=== PATIENT | female | born 1945 | race Caucasian/White ===

== ENCOUNTER → 2017-02-21 | Outpatient (CLI) | payer OTHER, BC | LOC: BHFA 11:00 | PROVIDERS: ATTEND Internal Medicine Cardiovascular Disease | DX: I50.33 Acute on chronic diastolic (congestive) heart failure (principal); R06.02 Shortness of breath; R60.9 Edema, unspecified ==

== ENCOUNTER → 2017-03-05 | Outpatient (CLI) | payer OTHER, BC | LOC: BHFA 10:45 | PROVIDERS: ATTEND Internal Medicine Cardiovascular Disease | DX: I50.9 Heart failure, unspecified (principal) ==

== ENCOUNTER → 2017-03-18 | Outpatient (CLI) | payer OTHER, BC | LOC: BRMIMAGING 14:01 | PROVIDERS: ATTEND Family Medicine | DX: Z13.820 Encounter for screening for osteoporosis (principal); M85.89 Other specified disorders of bone density and structure, multiple sites ==

== ENCOUNTER 2017-11-08 15:50 | Emergency (ER) | payer OTHER, BC ==
--- NOTE | 2017-11-08 16:12 | EDPHY ---
H & P Stated Complaint: R hip and R knee pain after mechanical fall today. Time Seen by Provider: 11/08/17 16:11 HPI/ROS: CC: Right hip, right knee and right chest wall injuries HPI: This is a 72-year-old female who took a tumble at home when she tripped and slipped on Aleve. She did not have her feet came out from underneath her but she fell instead to the side. In so doing she landed on her right pelvis area as well as the right thoracoabdominal region. Fortunately, she did not land on the abdomen proper. She does have some bruising on the abdomen she attributes to her prior insulin injections. However, she was not able to pull herself up right away and get on to the leg as she was unable to weightbear. She pulled herself over to the sink and then was able to get herself up a little bit and put her weight on her left leg. In fact she summoned helped by using her Arin machine and getting her daughter to come over. She notes that she had a so had a direct blow to the right knee and has lot of bruising there. Further she really was not aware of anything in the chest wall however until my exam elicited some tenderness in the posterior axial line on the lower right chest. She denies getting the wind knocked out of her. She denies any pleuritic pain with taking deep breath at this time. She has no nausea vomiting. Finally, she also struck her head. She did not lose consciousness. She has full recall for them. There has been no blood from the ear or nose. She has not any blood thinners or anti-platelet agents. 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 However, her most recent CAT scans in the last 6 months have not shown any bony metastasis. Pt queried and denies: no prior hx of substance abuse, no family history of substance abuse, or no current or prior psychiatric history. ROS: Constitutional - feeling well before the fall, no prodrome, simple mechanical fall Head no injury or hematoma. Eyes - no diplopia, blurred vision. ENT - no earache, no fluid from ear. No fluid from nose. No facial injury Neck: no pain or decreased ROM Thorax see above Abdominal - denies any abdomen, or back injury. No nausea. See above Musculoskeletal - see above Integument - no lacerations Neurological - no headache, numbness, tingling, or paresthesias. No focal motor weakness. No amnesia or LOC. No fluid from ear or nose 10 point ROS otherwise negative Source: Patient - Personal History Current Tetanus Diphtheria and Acellular Pertussis (TDAP): Yes Tetanus Vaccine Date: within 10 years - Medical/Surgical History Hx Asthma: No Hx Chronic Respiratory Disease: No Hx Diabetes: Yes Hx Cardiac Disease: Yes Hx Renal Disease: No Hx Cirrhosis: No Hx Alcoholism: No Hx HIV/AIDS: No Hx Splenectomy or Spleen Trauma: No Other PMH: Bile duct tumors, tubal ligation, c-4,5 fusion, bilat knee replacement, HTN, hypothyroidism, DM type II, osteoarthritis, "marginal issues with kidneys", R CHF, heart murmur, L BBB - Social History Smoking Status: Former smoker Alcohol Use: None Drug Use: None - Physical Exam Exam: Constitutional: Well-nourished, well-developed, no acute distress. [No odor of alcohol] Head: No cephalohematoma. No battles sign or racoon eyes. Neck: Nontender without step off, with full active range of motion without pain Eyes: Pupils equal and reactive. ENT: Ears are without hemotympanum. Mouth exam, atraumatic. Chest: Mild tenderness to the right posterior ribs in the posterior axillary line however, no crepitus or subcutaneous emphysema.. No signs of splinting respirations. Back: Nontender thoracic and lumbar sacral spine Abdomen: Nontender. No organomegaly. No abrasions. Scattered ecchymotic areas from her insulin injections Musculoskeletal: Moves all extremities without difficulty. No joint swelling. No ecchymosis. No deformities. Skin: No observed abrasions or lacerations. Skin is warm and dry. Normal motor and sensation. Large ecchymotic areas over the front of the right knee. See below Extremities: Neurovascular status intact to all 4 extremities With respect to the right knee: He is able to bend the knee. However there is tenderness over the site of the knee which is perhaps due to the ecchymotic regions at icy, unclear. No crepitus is felt. There is no deformity. There are several 2 cm elliptical ecchymotic regions, particularly over the medial area Was respect to the right hip: There is no shortening. No external rotation. When I move her hip to the inner aspect with internal rotation she has quite a bit of discomfort. Of note her body habitus precludes a good exam of the pelvis however there is no tenderness at that I am able to elicit over the anterior superior like signs or with the symphysis pubis. LS spine is nontender Neuro: Alert and oriented with a GCS of 15. No acute distress. No headache. Psych: Normal mood and affect. Constitutional: Initial Vital Signs Temperature (C) 37.2 C 11/08/17 15:59 Heart Rate 59 L 11/08/17 15:59 Respiratory Rate 16 11/08/17 15:59 Blood Pressure 127/60 H 11/08/17 15:59 O2 Sat (%) 90 L 11/08/17 15:59 O2 Delivery Mode Room Air Allergies/Adverse Reactions: povidone-iodine [From Betadine] Allergy (Verified 11/08/17 15:59) Pt reports rash soap [From Betadine] Allergy (Verified 11/08/17 15:59) Pt reports rash Home Medications: Medication Instructions Recorded Acetaminophen [Tylenol ES 500 mg 1,000 mg PO Q6 PRN 07/10/14 (*)] Carvedilol [Coreg (*)] 12.5 mg PO BIDMEAL 07/10/14 Cholecalciferol Vit D3 [Vitamin D3 5,000 units PO DAILY 07/10/14 (*)] Levothyroxine [Synthroid 75 mcg 75 mcg PO DAILY06 07/10/14 (*)] Melatonin [Melatonin 3 MG (*)] 3 mg PO HS 07/10/14 Docusate Sodium [Colace 100 MG (*)] 100 mg PO BID #20 cap 11/08/17 Oxycodone HCl 1 tab PO Q6H PRN #12 capsule 11/08/17 Pristiq 11/08/17 Proair Hfa 11/08/17 Torsemide 11/08/17 Toujeo Solostar 11/08/17 Medical Decision Making - Diagnostics Imaging Results: Imaging Impressions Hip X-Ray 11/08/17 16:27 Impression: No acute abnormality seen about the pelvis with attention right hip. Knee X-Ray 11/08/17 16:27 Impression: 1. No acute abnormality seen about the right knee with right total knee replacement in good position. Ribs w/Chest X-Ray 11/08/17 16:28 Impression: 1. Negative Right rib series. 2. Mild dependent edema suspected at the lung bases. 3. Mild cardiomegaly stable in appearance. Pelvis CT 11/08/17 17:08 Impression: Negative. No acute fracture or dislocation. Findings discussed with Emergency Department physician, Merrill Bowens M.D., on November 08, 2017 at 1845. ED Course/Re-evaluation: After initial meeting we talked about pain relief. If her x-rays are negative I want to have best option being be able to get around on her walker that she be assigned. She concurred that she will be able to handle morphine thus he went fairly low dose given her BMI at 4 mg subcu. The initial x-rays upon my interpretation were negative which included chest, ribs, right hip, and right knee. Thus, as she was unable to weight bear wihtout piain, I recommended a CT of Pelvis. Re-examination after the x-rays and CT patient was much improved with the subcu morphine. We had a chance to go over the diagnostic results and she was reassured. Nonetheless she should have re-examination with her family doctor within the week. I totally expected feel more comfortable as of 2 days. Given her history of bile tumors I would prefer to stay away from Tylenol. As well as her underlying diabetes and age, ibuprofen would be a poor choice. Therefore, she will of low-dose oxycodone. I have explained to her the risks and benefits narcotic management. Differential Diagnosis: Differential diagnosis includes but is not limited to Intracranial: subdural hematoma, epidural hematoma, peripheral contusion, concussion. Cervical spine: Fracture spine, dislocation spine, muscle strain Thorax: Rib fracture, hemothorax, pneumothorax, tension pneumothorax, aortic dissection, spine fracture. Spine: Thoracic and lumbar sacral spine fracture or dislocation Abdominal/pelvis: Splenic injury or hematoma or laceration, liver laceration or hematoma. Contusion of duodenum, renal contusion, hollow viscus injury, pelvic fracture, intra-abdominal bleeding. Extremity: Fracture, Sprain, Strain, Dislocation, Nerve injury, Contusion - Data Points Medications Given: Discontinued Medications Morphine Sulfate (Morphine) 4 mg SC EDNOW ONE Stop: 11/08/17 16:28 Last Admin: 11/08/17 17:01 Dose: 4 mg Departure - Departure Disposition: Home, Routine, Self-Care Clinical Impression: Chest wall contusion Qualifiers: Encounter type: initial encounter Laterality: right Qualified Code(s): S20.211A - Contusion of right front wall of thorax, initial encounter Contusion of knee Qualifiers: Encounter type: initial encounter Laterality: right Qualified Code(s): S80.01XA - Contusion of right knee, initial encounter Strain of hip Qualifiers: Encounter type: initial encounter Laterality: right Qualified Code(s): S76.011A - Strain of muscle, fascia and tendon of right hip, initial encounter Condition: Good Instructions: Contusion in Adults (ED) Additional Instructions: Apply ice to the areas. Oxycodone for the pain. Crutches as needed. Referrals: Yun Mays MD [Primary Care Provider] - As per Instructions Prescriptions: Docusate Sodium [Colace 100 MG (*)] 100 mg PO BID #20 cap Oxycodone HCl 1 tab PO Q6H PRN #12 capsule PRN Reason: pain
[2017-11-08 21:43] VITALS: BP 132/70
== END 2017-11-08 19:53 | disposition home or self-care (01) ==
LOC: CED 15:50
DX: S20.211A Contusion of right front wall of thorax, initial encounter (principal); S80.01XA Contusion of right knee, initial encounter; S76.011A Strain of muscle, fascia and tendon of right hip, initial encounter; Z87.891 Personal history of nicotine dependence; W01.0XXA Fall on same level from slipping, tripping and stumbling without subsequent striking against object, initial encounter; Y92.9 Unspecified place or not applicable; Y93.9 Activity, unspecified; Y99.9 Unspecified external cause status
CPT/HCPCS: 71111; 72192; 73502; 73562; 96372; 99285; J2270

== ENCOUNTER → 2018-03-03 | Outpatient (CLI) | payer OTHER, BC | LOC: BHFA 09:15 | PROVIDERS: ATTEND Internal Medicine Cardiovascular Disease | DX: I50.9 Heart failure, unspecified (principal) ==

== ENCOUNTER 2018-03-19 18:48 | Inpatient (IN) | payer OTHER, BC ==
[2018-03-19] MEDS ORDERED: IOHEXOL 350mgI/ML (OMNIPAQUE) 150 ML BTL IV ONE (19:11)
--- NOTE | 2018-03-19 19:20 | EDPHY ---
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 1 month ago, she developed a fever and was admitted to [facility]. She was placed on IV Zosyn for 7 days. All cultures and CT scan of the abdomen pelvis were unremarkable and she was ultimately discharged with fever of unknown origin. She has been feeling well until this morning, when she developed a fever, associated with nausea and vomiting. She saw her primary care physician, Dr. Mays this morning and labs were drawn. She was also given a prescription for Zofran and has not vomited since taking Zofran. Tolerating oral fluids well. Took Tylenol at 3:00 p.m.. Laboratory tests returned this evening and LFTs elevated and leukocytosis noted. Dr. Eladio Kumar was consulted, who recommended a CT scan of the abdomen and pelvis, ID consult and admission. REVIEW OF SYSTEMS: complete 10 point ROS reviewed and is negative except for the noted elements in the HPI - Personal History Current Tetanus/Diphtheria Vaccine: Yes Tetanus Vaccine Date: within 10 years - Medical/Surgical History Hx Asthma: No Hx Chronic Respiratory Disease: No Hx Diabetes: Yes Hx Cardiac Disease: Yes Hx Renal Disease: No Hx Cirrhosis: No Hx Alcoholism: No Hx HIV/AIDS: No Hx Splenectomy or Spleen Trauma: No Other PMH: Bile duct tumors/CA, tubal ligation, c-4,5 fusion, bilat knee replacement, HTN, hypothyroidism, DM type II, osteoarthritis, "marginal issues with kidneys", R CHF, heart murmur, L BBB, HERNIA/ABCESSES, LEFT LIVER LOBE REMOVAL - Social History Smoking Status: Former smoker - Physical Exam Exam: General Appearance: Alert, pleasant, nontoxic-appearing Eyes: Pupils equal and round, no conjunctival pallor or injection ENT, Mouth: Mucous membranes moist, no oral lesions Neck: Normal inspection Respiratory: Lungs are clear to auscultation Cardiovascular: Regular rate and rhythm Gastrointestinal: Abdomen is soft and nontender, hepatomegaly present Neurological: A&O, nonfocal exam Skin: Warm and dry, abrasion right forearm with erythema surrounding the abrasion, no tenderness Extremities: Nontender, no pedal edema Psychiatric: Mood and affect normal Constitutional: Initial Vital Signs Temperature (C) 38.2 C 01/30/19 18:45 Heart Rate 89 03/19/18 18:45 Respiratory Rate 20 03/19/18 18:45 Blood Pressure 150/52 H 03/19/18 18:45 O2 Sat (%) 85 L 03/19/18 18:45 O2 Delivery Mode Nasal Cannula O2 (L/minute) 2 Allergies/Adverse Reactions: povidone-iodine [From Betadine] Allergy (Verified 03/19/18 19:10) Pt reports rash soap [From Betadine] Allergy (Verified 03/19/18 19:10) Pt reports rash Home Medications: Medication Instructions Recorded Acetaminophen [Tylenol ES 500 mg 1,000 mg PO Q8 PRN 07/10/14 (*)] Carvedilol [Coreg (*)] 6.25 mg PO BIDMEAL 07/10/14 Cholecalciferol Vit D3 [Vitamin D3 5,000 units PO DAILY 07/10/14 (*)] Levothyroxine [Synthroid 75 mcg 75 mcg PO DAILY06 07/10/14 (*)] Melatonin [Melatonin 3 MG (*)] 3 mg PO HS 07/10/14 Albuterol [Proventil Inhaler HFA 1 - 2 puffs IH Q4H 11/08/17 (*)] Insulin Glargine,Hum.rec.anlog 80 unit SQ HS 11/08/17 [Toujeo Solostar] Torsemide 30 mg PO DAILY 11/08/17 Ascorbic Acid [Vitamin C 500 mg 1,000 mg PO DAILY 03/19/18 (*)] C/E/Zn/Cu/OM3/DHA/EPA/LUT/ZEAX 1 each PO HS 03/19/18 [Preservision Areds 2 Softgel] Cyanocobalamin [Vitamin B12 (*)] 1,000 mcg PO DAILY 03/19/18 Desvenlafaxine Fumarate 100 mg PO HS 03/19/18 [Desvenlafaxine Fumarate ER] Docusate Sodium [Colace 100 MG (*)] 100 mg PO HS 03/19/18 Eszopiclone 2 mg PO HS PRN 03/19/18 Ferrous Sulfate 324 mg PO Q2D 03/19/18 Herbals/Supplements -Info Only 1 ea PO DAILY 03/19/18 Losartan Potassium 100 mg PO DAILY 03/19/18 Pantoprazole Sodium [Protonix 40mg 40 mg PO HS 03/19/18 (*)] Sennosides/Docusate Sodium 1 each PO DAILY 03/19/18 [Senna-Docusate Sodium Tablet] amLODIPine BESYLATE [Norvasc 5 mg 5 mg PO DAILY 03/19/18 (*)] Medical Decision Making - Diagnostics Imaging Results: Abdomen CT 03/19/18 19:07 Impression: Postsurgical changes of resection of the right lobe of the liver and decreased attenuation of the dome of the liver, with calcification and lateral artifact from site of prior ablation. The hypodensity is similar in size and is more likely related to the ablation than recurrent or residual tumor. There is a fluid collection, with a simple appearance, posterior to the liver, which is nonspecific. With the simple appearance and unlike inflammatory change, an acute abscess is less likely. With the history of recent fever and cholangitis, a sterile abscess could be considered. Less likely consideration could be biloma or old hematoma. Similar differential with a small fluid collection in the inferior tip of the liver. Results called and discussed with Jesica Roman M.D., on March 19, 2018 at 1958. E:CN/rocio Imaging: Discussed imaging studies w/ call or contact centre manager Radiologist ED Course/Re-evaluation: This pt presents with fever and elevated LFT's. Abd soft and NT, though clinical presentation concerning for acute abd process. Fortunately, pt is well appearing. Meets SIRS criteria, initial lactate normal. Will obtain labs/ flu swab and CT abd/pelvis. CT results d/w pt, ?etiology of fluid collection, ?etiology of fever. Consulted Dr. Quigley for consideration of perihepatic fluid collection drainage and he saw pt in ED. UA pending, pt unable to urinate, 2nd liter IVF given. Could be source of infection, paresh with DM, though pt denies urinary sx. Consulted Dr. Galan, will see pt in am. Suggests considering holding abx for now, plan for Rocephin/Flagyl IV if pt becomes ill-appearing. Dr. Chacon was consulted for admission. Differential Diagnosis: Differential diagnosis includes pyelonephritis, cholecystitis, influenza, cellulitis, pneumonia, abscess, meningitis. - Data Points Medications Given: Acetaminophen (Tylenol) 650 mg PO Q4HRS PRN PRN Reason: Pain, Mild/Fever, Can Take PO Stop: 09/15/18 20:54 Last Admin: 03/20/18 10:27 Dose: 650 mg Hydrocodone Bitart/Acetaminophen ([place] 5/325) 1 - 2 tab PO Q4HRS PRN PRN Reason: Pain, Moderate Able to Take PO Stop: 03/29/18 20:54 Last Admin: 03/21/18 15:39 Dose: 2 tab Amlodipine Besylate (Norvasc) 5 mg PO DAILY MARÍA Stop: 09/16/18 08:59 Last Admin: 03/21/18 10:17 Dose: 5 mg Ascorbic Acid (Vitamin C) 1,000 mg PO DAILY MARÍA Stop: 09/16/18 08:59 Last Admin: 03/21/18 10:39 Dose: 1,000 mg Carvedilol (Coreg) 6.25 mg PO BIDMEAL [facility] Stop: 09/16/18 07:59 Last Admin: 03/21/18 11:25 Dose: 6.25 mg Cholecalciferol (Vitamin D) 5,000 units PO DAILY MARÍA Stop: 09/16/18 08:59 Last Admin: 03/21/18 10:39 Dose: 5,000 units Docusate Sodium (Colace) 100 mg PO HS [facility] Stop: 09/15/18 21:59 Last Admin: 03/20/18 20:36 Dose: 100 mg Enoxaparin Sodium (Lovenox) 40 mg SC BID [facility]A Stop: 09/16/18 08:59 Last Admin: 03/21/18 11:03 Dose: Not Given Ferrous Sulfate (Ferrous Sulfate) 325 mg PO Q2D [facility] Stop: 09/16/18 08:59 Last Admin: 03/20/18 10:05 Dose: 325 mg Ertapenem 1 gm/ Sodium (Chloride) 100 mls @ 200 mls/hr IV DAILY [facility]ÍA PRN Reason: Protocol Stop: 04/20/18 10:19 Last Admin: 03/21/18 11:10 Dose: 100 mls Insulin Human Lispro (Humalog Lispro) 0 unit SC TIDMEAL [facility]A PRN Reason: Protocol Stop: 09/16/18 07:59 Last Admin: 03/21/18 12:46 Dose: Not Given Levothyroxine Sodium (Synthroid) 75 mcg PO DAILY06 [facility] Stop: 09/16/18 05:59 Last Admin: 03/21/18 06:06 Dose: 75 mcg Losartan Potassium (Cozaar) 100 mg PO DAILY [facility] Stop: 09/16/18 08:59 Last Admin: 03/21/18 10:48 Dose: 100 mg Melatonin (Melatonin) 3 mg PO HS [facility] Stop: 09/15/18 21:59 Last Admin: 03/20/18 20:36 Dose: 3 mg Miscellaneous Medication (Insulin Glargine,Hum.Rec.Anlog [Darrellanalia Ursulaarabella]) 80 unit SQ HS [facility] Stop: 09/15/18 21:59 Last Admin: 03/20/18 20:46 Dose: 80 units Miscellaneous Medication (Desvenlafaxine Fumarate [Desvenlafaxine Fumarate Er]) 100 mg PO HS [facility] Stop: 09/15/18 22:14 Last Admin: 03/20/18 20:49 Dose: 100 mg Multivitamins/Minerals (Preservision Areds2 Formula) 1 each PO HS [facility] Stop: 09/16/18 20:59 Last Admin: 03/20/18 20:36 Dose: 1 each Ondansetron HCl (Zofran Odt) 4 mg PO Q4HRS PRN PRN Reason: Nausea/Vomiting, Use 1st Stop: 09/15/18 20:54 Last Admin: 03/20/18 20:42 Dose: 4 mg Pantoprazole Sodium (Protonix) 40 mg PO HS [facility] Stop: 09/15/18 21:59 Last Admin: 03/20/18 21:32 Dose: 40 mg Senna/Docusate Sodium (Senokot-S) 1 tab PO DAILY [facility] Stop: 09/16/18 08:59 Last Admin: 03/21/18 10:43 Dose: 1 tab Torsemide (Demadex) 30 mg PO DAILY [facility] Stop: 09/16/18 08:59 Last Admin: 03/21/18 10:43 Dose: Not Given Vitamin B Complex (Vitamin B12) 1,000 mcg PO DAILY [facility] Stop: 09/16/18 08:59 Last Admin: 03/21/18 10:40 Dose: 1,000 mcg Discontinued Medications Acetaminophen (Tylenol) 1,000 mg PO EDNOW ONE Stop: 03/19/18 19:22 Last Admin: 03/19/18 19:38 Dose: 1,000 mg Albuterol (Proventil Inhaler) 1 - 2 puffs IH Q4H [facility] Stop: 09/15/18 21:44 Last Admin: 03/19/18 23:33 Dose: Not Given Albuterol (Proventil Inhaler) 1 - 2 puffs IH Q4H [facility] Stop: 09/16/18 00:00 Last Admin: 03/21/18 11:20 Dose: Not Given Carvedilol (Coreg) 6.25 mg PO ONCE ONE Stop: 03/20/18 00:42 Last Admin: 03/20/18 01:20 Dose: 6.25 mg Sodium Chloride (Ns) 1,000 mls @ 0 mls/hr IV ONCE ONE; Wide Open PRN Reason: Protocol Stop: 03/19/18 20:15 Last Admin: 03/19/18 21:08 Dose: 1,000 mls Ceftriaxone Sodium/Dextrose (Rocephin 1 Gm (Premix)) 50 mls @ 100 mls/hr IV DAILY [facility]A PRN Reason: Protocol Stop: 04/18/18 21:29 Last Admin: 03/21/18 10:50 Dose: Not Given Metronidazole/Sodium Chloride (Flagyl 500 Mg (Premix)) 100 mls @ 100 mls/hr IV Q8HRS [facility] PRN Reason: Protocol Stop: 04/18/18 21:59 Last Admin: 03/21/18 06:05 Dose: 100 mls Departure - Departure Disposition: [facility] Acute Clinical Impression: Cholangiocarcinoma Fever Qualifiers: Fever type: unspecified Qualified Code(s): R50.9 - Fever, unspecified Sepsis Qualifiers: Sepsis type: sepsis due to unspecified organism Qualified Code(s): A41.9 - Sepsis, unspecified organism Condition: Fair
[2018-03-19] MEDS ORDERED: ACETAMINOPHEN 325 MG TAB PO ONE (19:21)
[2018-03-19 19:25] LABS: INR 1.14 (0.83-1.16); PROTIME(PATIENT) 14.8 SEC (12.0-15.0)
[2018-03-19] MEDS ORDERED: ACETAMINOPHEN 500 MG TAB ONE (19:36)
[2018-03-19] MEDS ORDERED: NS 1,000 ML IV ONE (20:14)
[2018-03-19] MEDS ORDERED: ONDANSETRON 4 MG/2 ML VIAL IVP PRN (20:55)
[2018-03-19] MEDS ORDERED: HYDROmorphONE/DILAUDID 1 MG/ML INJ IVP PRN (20:55)
[2018-03-19] MEDS ORDERED: LORazepam 0.5 MG TAB PO PRN (20:55)
[2018-03-19] MEDS ORDERED: oxyCODONE IR 5 MG TAB PO PRN (20:55)
[2018-03-19] MEDS ORDERED: PROMETHAZINE HCL 25 MG/ML INJ IVP PRN (20:55)
--- NOTE | 2018-03-19 21:09 | PDGENHP ---
History and Physical - Chief Complaint fever, 'dry heaves' - History of Present Illness 72 yo F with hx of cholangiocarcinoma diagnosed in 2009 as well as hx of VINCENT, diastolic heart failure and IDDM presenting with c/o fever and dry heaves since this morning. Patient notes she had fever one month ago at which time she was hospitalized at [facility] and treated with IV zosyn for 7 days and ultimately discharged with diagnosis of fever of unknown origin--apparently all scans and cultures came back negative. She notes that since then she has not felt great in terms of having lower energy levels and generalized malaise, but nothing specifically wrong until today with the retching this morning and fever. She was seen by her PCP Dr. Mays this morning who ordered zofran and recommended that if fever return she come to the ER. She again noted a temperature of 101 and therefore came here. She denies pain in her abdomen or anywhere else. She was most recently treated with radiation this summer at [facility] where she is followed by Dr. Nugent and notes that he has been following serial tumor markers and imaging and everything has appeared quiescent since the summer. She has had issues with wide pulse pressures recently and is being worked up by Dr. Schwartz for this as well as a LBBB. He performed an echo recently which only showed diastolic dysfunction and had scheduled her for a nuc stress and holter monitor. History Information - Allergies/Home Medication List Allergies/Adverse Reactions: povidone-iodine [From Betadine] Allergy (Verified 03/19/18 19:10) Pt reports rash soap [From Betadine] Allergy (Verified 03/19/18 19:10) Pt reports rash Home Medications: Acetaminophen [Tylenol ES 500 mg (*)] 1,000 mg PO Q6 PRN 07/10/14 [Last Taken ] Carvedilol [Coreg (*)] 12.5 mg PO BIDMEAL 07/10/14 [Last Taken 07/09/14] Cholecalciferol Vit D3 [Vitamin D3 (*)] 5,000 units PO DAILY 07/10/14 [Last Taken 07/09/14] Levothyroxine [Synthroid 75 mcg (*)] 75 mcg PO DAILY06 07/10/14 [Last Taken ] Melatonin [Melatonin 3 MG (*)] 3 mg PO HS 07/10/14 [Last Taken 07/09/14] Pristiq 11/08/17 [Last Taken Unknown] Proair Hfa 11/08/17 [Last Taken Unknown] Torsemide 11/08/17 [Last Taken Unknown] Toujeo Solostar 11/08/17 [Last Taken Unknown] Amlodipine Besylate 03/19/18 [Last Taken Unknown] Ascorbic Acid [Vitamin C 500 mg (*)] 1,000 mg PO DAILY 03/19/18 [Last Taken ] Docusate Sodium [Colace 100 MG (*)] 100 mg PO HS 03/19/18 [Last Taken 03/18/18] Eszopiclone 2 mg PO HS PRN 03/19/18 [Last Taken 3 Days Ago ~03/16/18] Ferrous Sulfate 03/19/18 [Last Taken Unknown] Losartan Potassium 03/19/18 [Last Taken Unknown] Maize-3 03/19/18 [Last Taken Unknown] Pantoprazole Sodium 03/19/18 [Last Taken Unknown] Preservision Areds Tablet 03/19/18 [Last Taken Unknown] Sennosides/Docusate Sodium [Senna-Docusate Sodium Tablet] 1 each PO DAILY [Last Taken 03/18/18] Vitamin B-12 03/19/18 [Last Taken Unknown] I have personally reviewed and updated: family history, medical history, social history, surgical history - Past Medical History asthma, cancer (cholangiocarcinoma), CHF (chronic diastolic), diabetes type 2, GERD, hypertension, hyperlipidemia Additional medical history: hypothyroid. LBBB. CKD with baseline of 1.8. hyperparathyroid. morbid obesity. VINCENT on cpap. prior intra-abdominal abscess - Surgical History Reports: cancer surgery (multiple liver resections, ablations and xrt therapy), hernia repair (with mesh) Additional surgical history: tubal ligation. bilateral knee surgery. ex lap and STEPHANIE - Family History Positive for: non-pertinent - Social History Smoking Status: Former smoker Alcohol Use: Occasionally Drug Use: None Additional social history: retired stitcher operator of [employer] Review of Systems: ROS: 10pt was reviewed & negative except for what was stated in HPI & below Physical Exam Physical Exam: Temp Pulse Resp BP Pulse Ox 38.4 C H 76 20 121/40 H 95 03/19/18 19:52 03/19/18 21:00 03/19/18 21:00 03/19/18 21:00 03/19/18 21:00 O2 (L/minute) 2 Constitutional: obese, uncomfortable Eyes: PERRL, anicteric sclera Ears, Nose, Mouth, Throat: moist mucous membranes, hearing normal Cardiovascular: no murmur, rub, or gallop, tachycardia, edema Respiratory: no respiratory distress, reduced air movement Gastrointestinal: normoactive bowel sounds, soft, non-tender abdomen, No no palpable masses, No guarding, No rebound Genitourinary: no bladder tenderness Skin: warm, normal color Musculoskeletal: full muscle strength, no muscle tenderness Neurologic: AAOx3 Psychiatric: interacting appropriately, not anxious, not encephalopathic Lab Data & Imaging Review PT 14.8 SEC (12.0-15.0) 03/19/18 18:50 INR 1.14 (0.83-1.16) 03/19/18 18:50 APTT 28.1 SEC (23.0-38.0) 03/19/18 18:50 VBG Lactic Acid 1.7 mmol/L (0.7-2.1) 03/19/18 19:00 Nasal Influenza A PCR NEGATIVE FOR FLU A (NEGATIVE) 03/19/18 19:20 Nasal Influenza B PCR NEGATIVE FOR FLU B (NEGATIVE) 03/19/18 19:20 wbc 12 creat 1.1 gluc 176 t bili 1.5 ast 91 alt 87 Visualized and Interpreted Chest x-ray results: Yes Chest X-Ray results: no infiltrate Visualized and Interpreted imaging results: Yes Interpretation: abd CT: simple appearing fluid collection posterior to liver, nonspecific. post surgical and post ablation changes to liver--on review of dc summary from [place] this fluid collection was present then as well Visualized and Interpreted EKG results: Yes EKG Interpretation: Positive for: left bundle branch block Assessment & Plan Assessment: 72 yo F with hx of cholangiocarcinoma, IDDM, chronic CHF presenting with fever/n /v # SIRS: patient presenting with fever, elevated wbc and only localizing sxs being n/v this morning that has since resolved. Abd CT without clear explanation , UA pending, cultures pending. Had similar presentation to [facility] one month ago without clear explanation discovered, but persistent fevers and treated with 1 week zosyn. ID consulted, recommending ctx/flagyl for now and will eval patient in am. Will trend fever curve, wbc. Consider non infectious fever etiology such as PE or DVT though no real sxs of this currently other than mild hypoxia--consider CTA if no other etiology discovered # cholangiocarcinoma: present x 9 years, s/p multiple surgical interventions/ ablations and most recently XRT, followed at [facility], tumor markers trending down, imaging appears stable # n/v: patient notes no real vomiting just retching and dry heaves, resolved with zofran, as above # acute on chronic hypoxic respiratory failure: at baseline only requires o2 at night with her cpap for vincent, presenting with o2 sats of 85% on RA though no respiratory complaints really--will check resp pathogen pcr. Consider PE though seems less likely given presentation, consider CTA if w/u remains unrevealing # IDDM: will resume home meds, SSI # CKD: with prior baseline closer to 1.9, currently better than usual baseline # diastolic heart failure, chronic: does not appear decompensated, followed by Dr. Schwartz # LBBB/widened pulse pressure: being w/u by Dr. Schwartz, recent echo, plan for stress test and holter # IP status, will likely require > 48 hours stay for eval/mgmt of above Patient new to my care. Old records reviewed, summarized as above. Care plan reviewed with ER doctor.
[2018-03-19] MEDS ORDERED: ALBUTEROL 60 PUFFS/8 GM MDI IH SCH (21:45)
[2018-03-19] MEDS ORDERED: ZOLPIDEM TARTRATE 5 MG TAB PO PRN (21:50)
[2018-03-19] MEDS ORDERED: D50W 25 GM/50 ML SYR IVP PRN (21:55)
[2018-03-19] MEDS ORDERED: Desvenlafaxine Succinate [Pristiq] 100 MG PO SCH (22:00)
--- NOTE | 2018-03-19 22:05 | PDMN ---
Medical Necessity Medical necessity: Pt meets IP criteria as of 03/19/2018 per and MCG M-160 ( Sepsis and other febrile illness, without focal infection); est los > 2 mn for ongoing tx and management of fever with elevated WBC, nausea/vomiting, and hypoxia in the setting of cholangiocarcinoma, CKD, and diastolic heart failure; requiring ID consultation, IV ABX and further workup.
[2018-03-19] MEDS: Insulin Glargine,Hum.Rec.Anlog [Toujeo Solostar] SQ SCH (22:52)
[2018-03-19] MEDS: ALBUTEROL 60 PUFFS/8 GM MDI IH SCH (23:01)
[2018-03-20] MEDS: DOCUSATE SODIUM 100 MG CAP PO SCH ×2 (00:21→20:36)
[2018-03-20] MEDS: [UNRECOGNIZED DRUG - OTHER] PO SCH ×2 (00:21→20:49)
[2018-03-20] MEDS: PANTOPRAZOLE SODIUM 40 MG TAB PO SCH ×2 (00:21→21:32)
[2018-03-20] MEDS: MELATONIN 3 MG TAB PO SCH ×2 (00:21→20:36)
[2018-03-20] MEDS ORDERED: CARVEDILOL 6.25 MG TAB PO ONE (00:41)
[2018-03-20] MEDS: ACETAMINOPHEN 325 MG TAB PO PRN ×2 (00:41→10:27)
[2018-03-20] MEDS: LEVOTHYROXINE 75 MCG TAB PO SCH (05:24)
[2018-03-20 05:32] LABS: PLATELET COUNT 158 10^3/uL (150-400)
[2018-03-20] MEDS: ALBUTEROL 60 PUFFS/8 GM MDI IH SCH ×6 (05:54→23:39)
[2018-03-20] MEDS: INSULIN LISPRO 100 UNIT/ML SC SCH ×3 (09:25→19:04)
[2018-03-20] MEDS: CYANO/VITAMIN B12 1000 MCG TAB PO SCH (10:02)
[2018-03-20] MEDS: CHOLECALCIFEROL VIT D3 2,000 UNITS TAB/CAP PO SCH (10:02)
[2018-03-20] MEDS: LOSARTAN POTASSIUM 50 MG TAB PO SCH (10:02)
[2018-03-20] MEDS: SENNOSIDES/DOCUSATE SODIUM TAB PO SCH (10:03)
[2018-03-20] MEDS: CARVEDILOL 6.25 MG TAB PO SCH ×2 (10:04→19:01)
[2018-03-20] MEDS: ASCORBIC ACID 500 MG TAB PO SCH (10:05)
[2018-03-20] MEDS: FERROUS SULFATE 325 MG TAB PO SCH (10:05)
[2018-03-20] MEDS: amLODIPine BESYLATE 5 MG TAB PO SCH (10:05)
[2018-03-20] MEDS: ENOXAPARIN 40 MG/0.4 ML SYR SC SCH ×2 (10:06→20:36)
[2018-03-20] MEDS: TORSEMIDE 20 MG TAB PO SCH (10:11)
--- NOTE | 2018-03-20 16:31 | HOSPPROG ---
Hospitalist Progress Note Assessment/Plan: * Corrina-hepatic fluid collection -empiric Ceftriaxone/Flagyl -consider IR drain if there is good approach - await ID opinion * Cholangiocarcinoma -s/p previous ablations/XRT * Morbid obesity (BMI 45) with VINCENT - CPAP qhs -current daytime hypoxia - suspect obesity hypoventilation * DM II -Lantus * Chronic diastolic CHF Subjective: no new complaints. Objective: Vital Signs Temp Pulse Resp BP Pulse Ox 37.5 C 79 17 127/70 H 98 03/20/18 11:52 03/20/18 11:52 03/20/18 11:52 03/20/18 11:52 03/20/18 11:52 Laboratory Results 03/20/18 04:58 03/20/18 04:58 03/19/18 03/20/18 03/21/18 05:59 05:59 05:59 Intake Total 900 Output Total 400 Balance 500 PT 14.8 SEC (12.0-15.0) 03/19/18 18:50 INR 1.14 (0.83-1.16) 03/19/18 18:50 CT abd reviewed - 8x3 cm fluid collection by liver old chart reviewed - last admission 2014 for lyssa abd abscess - Physical Exam Constitutional: no apparent distress, appears nourished, not in pain Cardiovascular: regular rate and rhythym, no murmur, rub, or gallop Respiratory: no respiratory distress, no rales or rhonchi, clear to auscultation Gastrointestinal: normoactive bowel sounds, soft, non-tender abdomen, no palpable masses Skin: no rashes or abrasions, no fluctuance, no induration Neurologic: AAOx3, sensation intact bilaterally Psychiatric: interacting appropriately, not anxious, not encephalopathic, thought process linear ICD10 Worksheet Patient Problems: Problems Problem Status Onset Cholangiocarcinoma Acute C. difficile diarrhea Acute 08/01/14
--- NOTE | 2018-03-20 17:06 | ASMTCMCOM ---
CM Note CM Note Notes: Pt is a 72 yo F, presents with Fever, has history of cholangiocarcinoma, hx of VINCENT, diastolic heart failure, and IDDM Pt resides at [facility] in [place]. Therapies ordered, pending eval. CM to follow. Plan: TBD Date Signed: 03/20/2018 05:06 PM Electronically Signed By:JODI Rousseau
--- NOTE | 2018-03-20 19:27 | PDCONSULT ---
Shuttle Filler Note: Infectious Diseases Consult Note Impression: 72-year-old woman with relatively quiescent cholangiocarcinoma complicated by two ai-hepatic fluid collections and recurrent fevers. Discussed with her oncologist her disease state and planning. Prefer conservative management without drain placement if her fever resolves with ongoing discussions regarding overall plans of care and possible oral antibiotic suppression. 1. Fever; Improved 2. Ai-hepatic fluid collections; Possible abscesses 3. Cholangiocarcinoma; Never has received chemotherapy; Multiple resections and radiation therapy 4. Diabetes mellitus, type II Plan: 1. Continue ceftriaxone 2. Continue metronidazole 3. Defer drain placement if fevers resolve and coordinate further planning as outpatient Tito Shah MD Infectious Diseases Chief Complaint: Fever Requesting Provider: Dr. Aquino Reason for Referral: Consultation was requested by Dr. Aquino regarding antimicrobial management. HPI: 72-year-old woman admitted after she developed the sudden onset of fever and "dry heaves" on the day of admission. She notes feeling her usual health prior to onset but this episode was similar to previous episodes while on a cruise to [place] (October 2017), and while visiting family in [place] ( admitted to [facility]) in January 2018 over the holiday. She notes general improvement since admission. No headache, visual changes, neck stiffness, diarrhea, rash, myalgias, dysuria, cough, or arthralgias prior to admission. She has cholangiocarcinoma diagnosed approximately 12 year prior to admission and has undergone multiple resections at [facility] with most recent therapy being localized radiation this past summer. She has never received chemotherapy for her disease. Discussion by phone with her oncologist (Dr. Nugent) who has been monitoring her disease for progression but feels she is very stable without obvious progression. Her admission at [facility] did no recover a diagnosis but fevers resolving after approximately 7 days of antibiotics. No sick contacts. Past Medical History: Cholangiocarcinoma; Diabetes mellitus Past Surgical History: Multiple liver resections Social History: Non-smoker; No alcohol use; No illicit drug use Family History: No recurrent infection. Allergies: NKDA Medications: Reviewed in medical record and confirmed with patient. ROS: 10 organ systems reviewed; pertinent positives and negatives listed in the HPI, all other organ systems negative. Physical Exam: VS: Reviewed Gen: No acute distress; Breathing comfortably without exogenous oxygen; Able to speak in complete sentences Eyes: No conjunctival injection; No scleral icterus HENT: No gross deformities Neck: No limitation in range of motion Pulm: Breath sounds clear to the bases bilaterally; No wheeze, rhonchi, or rales CV: Normal S1 and S2; Regular rate and rhythm; No murmurs, rubs, or gallops; No lower extremity edema Abd: Distended; Hypo-active bowel sounds; Soft; Non-tender Skin: A full skin exam including exposed bilateral upper extremities, bilateral lower extremities to the knees, face, neck, abdomen, chest, and back performed; Skin intact, warm, with no rash MSK: Joints without erythema or edema; No gross limitation in range of motion Ext: No clubbing or cyanosis Neuro: Awake and alert Psych: Normal mood and affect Labs/Imaging: All microbiology testing (culture and non-culture) reviewed in the medical record. Personally reviewed and interpreted the images of the following radiographs: abdominal CT showing fluid collection posterior to liver and a smaller fluid collection adjacent to liver. Cr: 1.1 eGFR (Cockcroft-Gault): ~49 WBC: 8.55 (ANC 7.15; ALC 0.65) Blood cultures negative to date. Antimicrobials: Ceftriaxone Metronidazole Ongoing monitoring for antimicrobial toxicity with: CBC, BMP. [id number] time with patient: 65 minutes with >50% of [id number]-nw-[id number] time spent in counseling, patient education, and coordinating care. Counseling provided included the microbiology of ai-hepatic abscess, expected time to resolution, natural history without treatment, and side effects of treatment.
[2018-03-20] MEDS: PRESERVISION AREDS2 FORMULA EYE VIT 1 EACH PO SCH (20:36)
[2018-03-20] MEDS: HYDROCODONE/APAP 5/325 TAB PO PRN (20:41)
[2018-03-20] MEDS: ONDANSETRON DISINTEGRATING 4 MG TAB PO PRN (20:42)
[2018-03-20] MEDS: Insulin Glargine,Hum.Rec.Anlog [Toujeo Solostar] SQ SCH (20:46)
[2018-03-21] MEDS: ALBUTEROL 60 PUFFS/8 GM MDI IH SCH ×3 (04:30→11:20)
[2018-03-21] MEDS: LEVOTHYROXINE 75 MCG TAB PO SCH (06:06)
[2018-03-21] MEDS: amLODIPine BESYLATE 5 MG TAB PO SCH (10:17)
--- NOTE | 2018-03-21 10:29 | PCMIDPN ---
Assessment/Plan: Assessment: 72-year-old woman with Enterobacter bloodstream infection as the cause for her fevers and likely infecting the perihepatic fluid collections. Fevers while on ceftriaxone likely due to poor activity against Enterobacter species from this antibiotic. Change to ertapenem and now are compelled to attempt drainage of at least the large perihepatic fluid collection which presumptively is infected with bowel valeria including Enterobacter. 1. Enterobacter bloodstream infection, likely source perihepatic fluid collection and or cholangitis 2. Perihepatic fluid collections, likely source of 1. 3. Active cholangiocarcinoma, quiescent disease on surveillance 4. CKD 5. Diabetes mellitus, type 2 Plan: 1. Stop ceftriaxone and metronidazole 2. Start ertapenem 1 g daily 3. IR to evaluate for possible drainage of at least the large perihepatic fluid collection 4. Discussed potential side effects of ertapenem which include antibiotic associated diarrhea, rash, C diff colitis Tito Shah MD Infectious Diseases 03/21/18 10:31 Subjective: Fever overnight with chills and nausea. Denies diarrhea, rash. Objective: Vital Signs Temp Pulse Resp BP Pulse Ox 37.2 C 63 16 141/55 H 94 03/21/18 08:00 03/21/18 08:00 03/21/18 08:00 03/21/18 10:16 03/21/18 08:00 Laboratory Results 03/20/18 04:58 03/21/18 05:06 03/20/18 03/21/18 03/22/18 05:59 05:59 05:59 Intake Total 900 1400 Output Total 400 1400 400 Balance 500 0 -400 Medications Generic Name Dose Route Start Last Admin Trade Name Freq PRN Reason Stop Dose Admin Ceftriaxone Sodium/Dextrose 50 mls @ 100 mls/hr 03/19/18 21:30 03/20/18 10:01 Rocephin 1 Gm (Premix) IV 04/18/18 21:29 50 mls DAILY MARÍA Protocol Metronidazole/Sodium Chloride 100 mls @ 100 mls/hr 03/19/18 22:00 03/21/18 06 :05 Flagyl 500 Mg (Premix) IV 04/18/18 21:59 100 mls Q8HRS MARÍA Protocol Laboratory Tests 03/20/18 03/20/18 03/21/18 04:58 04:58 05:06 WBC 8.55 Absolute Neuts (auto) 7.19 H Absolute Lymphs (auto) 0.65 L Creatinine 1.1 H AST 59 H 34 ALT 70 H 53 H Alkaline Phosphatase 276 H 257 H Microbiology 03/19/18 19:20 Nasal, Sinus - Anaerobic Tube/Swab Respiratory Panel (PCR) - Final No Organism Detected By Pcr 03/19/18 14:04 Blood Blood Panel (PCR) - Final Enterobacter Cloacae Complex 03/19/18 23:45 Urine,Clean Catch Urine Culture - Preliminary 03/19/18 14:04 Blood Blood Culture - Preliminary Gram Negative Tom 03/19/18 14:04 Blood Blood Culture - Preliminary 03/19/18 14:04 Blood Gram Negative Tom - Physical Exam General Appearance: no apparent distress, non-toxic EENT: No scleral icterus Respiratory: lungs clear, normal breath sounds, No respiratory distress, No crackles, No wheezing Neck: supple Cardiac/Chest: regular rate, rhythm, No bradycardia, No tachycardia, No diastolic murmur, No systolic murmur Extremities: normal inspection, No erythema Back: normal inspection Skin: No rash, No erythema Neuro/Psych: alert, normal mood/affect, oriented x 3 - Time Spent With Patient Time Spent with Patient: greater than 35 minutes Time Spent with Patient: Greater than 35 minutes spent on this patients care, greater than 50% of time spent counseling, educating, and coordinating care regarding the above mentioned plan. ICD10 Worksheet Patient Problems: Problems Problem Status Onset C. difficile diarrhea Acute 08/01/14 Cholangiocarcinoma Acute
--- NOTE | 2018-03-21 10:31 | HOSPPROG ---
Hospitalist Progress Note Assessment/Plan: # enterobacter cloacae bacteremia, d/t perihepatic fluid collection -change abx to invanz per ID - will sample fluid collection in IR today # cholangiocarcinoma followed by dr tapia - s/p previous XRT, ablations # morbid obesity - BMI 45 # VINCENT on cpap # DM2 - lantus, SSI # chronic diastolic CHF - reports recent echo ok - cont torsemide # htn - losartan, norvasc, coreg # LBBB - plans for outpatient nuc stress - will defer for now in setting of bacteremia # dvt ppx - lovenox Subjective: no complaints today Objective: Vital Signs Temp Pulse Resp BP Pulse Ox 37.2 C 63 16 141/55 H 94 03/21/18 08:00 03/21/18 08:00 03/21/18 08:00 03/21/18 10:16 03/21/18 08:00 Laboratory Results 03/20/18 04:58 03/21/18 05:06 03/20/18 03/21/18 03/22/18 05:59 05:59 05:59 Intake Total 900 1400 Output Total 400 1400 400 Balance 500 0 -400 PT 14.8 SEC (12.0-15.0) 03/19/18 18:50 INR 1.14 (0.83-1.16) 03/19/18 18:50 chart reviewed discussed with dr pearce ct reviewed - Physical Exam Constitutional: obese Cardiovascular: regular rate and rhythym, no murmur, rub, or gallop Respiratory: no respiratory distress, no rales or rhonchi, clear to auscultation Gastrointestinal: normoactive bowel sounds, soft, non-tender abdomen ICD10 Worksheet Patient Problems: Problems Problem Status Onset C. difficile diarrhea Acute 08/01/14 Cholangiocarcinoma Acute
[2018-03-21] MEDS: ASCORBIC ACID 500 MG TAB PO SCH (10:39)
[2018-03-21] MEDS: CHOLECALCIFEROL VIT D3 2,000 UNITS TAB/CAP PO SCH (10:39)
[2018-03-21] MEDS: CYANO/VITAMIN B12 1000 MCG TAB PO SCH (10:40)
[2018-03-21] MEDS: SENNOSIDES/DOCUSATE SODIUM TAB PO SCH (10:43)
[2018-03-21] MEDS: TORSEMIDE 20 MG TAB PO SCH (10:43)
[2018-03-21] MEDS: LOSARTAN POTASSIUM 50 MG TAB PO SCH (10:48)
[2018-03-21] MEDS: INSULIN LISPRO 100 UNIT/ML SC SCH ×3 (10:49→18:40)
[2018-03-21] MEDS: ENOXAPARIN 40 MG/0.4 ML SYR SC SCH ×2 (11:03→21:01)
[2018-03-21] MEDS: ERTAPENEM 1 GM in NS 100 ML IV SCH (11:10)
[2018-03-21] MEDS: CARVEDILOL 6.25 MG TAB PO SCH ×2 (11:25→17:48)
[2018-03-21] MEDS ORDERED: NALOXONE HCL 0.4 MG/ML INJ IVP PRN (12:57)
[2018-03-21] MEDS ORDERED: fentaNYL 100 MCG/2 ML INJ IVP PRN (12:57)
[2018-03-21] MEDS ORDERED: NS 1,000 ML IV SCH (13:00)
--- NOTE | 2018-03-21 15:25 | ASMTCMCOM ---
CM Note CM Note Notes: Treatment continuing. PT/OT have not been ordered for pt. No CM needs identified at this time; CM will follow for changes. D/C Plan: Anticipate return to [place] in [place] Date Signed: 03/21/2018 03:24 PM Electronically Signed By:Jodi Amaya
[2018-03-21] MEDS: HYDROCODONE/APAP 5/325 TAB PO PRN (15:39)
[2018-03-21] MEDS: DOCUSATE SODIUM 100 MG CAP PO SCH (21:00)
[2018-03-21] MEDS: MELATONIN 3 MG TAB PO SCH ×2 (21:00→21:01)
[2018-03-21] MEDS: PRESERVISION AREDS2 FORMULA EYE VIT 1 EACH PO SCH (21:00)
[2018-03-21] MEDS: [UNRECOGNIZED DRUG - OTHER] PO SCH (21:01)
[2018-03-21] MEDS: Insulin Glargine,Hum.Rec.Anlog [Toujeo Solostar] SQ SCH (21:03)
[2018-03-21] MEDS: PANTOPRAZOLE SODIUM 40 MG TAB PO SCH (21:13)
[2018-03-21] MEDS: ALBUTEROL 60 PUFFS/8 GM MDI IH PRN (22:01)
[2018-03-22] MEDS: HYDROCODONE/APAP 5/325 TAB PO PRN ×2 (05:44→16:45)
[2018-03-22] MEDS: LEVOTHYROXINE 75 MCG TAB PO SCH (05:45)
[2018-03-22 05:59] LABS: PLATELET COUNT 167 10^3/uL (150-400)
[2018-03-22] MEDS: INSULIN LISPRO 100 UNIT/ML SC SCH ×3 (08:45→16:45)
[2018-03-22] MEDS: ERTAPENEM 1 GM in NS 100 ML IV SCH (09:10)
[2018-03-22] MEDS: ENOXAPARIN 40 MG/0.4 ML SYR SC SCH ×2 (09:10→21:11)
[2018-03-22] MEDS: TORSEMIDE 20 MG TAB PO SCH (09:10)
[2018-03-22] MEDS: CYANO/VITAMIN B12 1000 MCG TAB PO SCH (09:12)
[2018-03-22] MEDS: LOSARTAN POTASSIUM 50 MG TAB PO SCH (09:12)
[2018-03-22] MEDS: amLODIPine BESYLATE 5 MG TAB PO SCH (09:12)
[2018-03-22] MEDS: CARVEDILOL 6.25 MG TAB PO SCH ×2 (09:12→16:47)
[2018-03-22] MEDS: FERROUS SULFATE 325 MG TAB PO SCH (09:13)
[2018-03-22] MEDS: CHOLECALCIFEROL VIT D3 2,000 UNITS TAB/CAP PO SCH (09:13)
[2018-03-22] MEDS: ASCORBIC ACID 500 MG TAB PO SCH (09:14)
[2018-03-22] MEDS: SENNOSIDES/DOCUSATE SODIUM TAB PO SCH (09:14)
--- NOTE | 2018-03-22 10:44 | ASMTCMCOM ---
CM Note CM Note Notes: Per hospitalist, pt may be d/carlin with IV antibiotics. Referral sent to [facility]. D/C Plan: Possibly with [facility] for IV antibiotics. Date Signed: 03/22/2018 10:43 AM Electronically Signed By:Jodi Amaya
--- NOTE | 2018-03-22 11:41 | PCMIDPN ---
Assessment/Plan: Assessment: Enterobacter bacteremia secondary to ai hepatic collection presumably. This collection is unable to be accessed by Interventional Radiology due to its location. At this point the strategy will be to treat with ertapenem and monitor the collection for reduction in size with treatment. Patient clinically appears to be doing much better today. No new issues. No changes in therapy. Plan: 1. Continue IV ertapenem as dosed. 2. Follow patient's clinical course. 03/22/18 11:39 Subjective: Patient is resting in her hospital bed. She was attempting to take a nap this morning. She reports that her fevers have been gone for the last 24-36 hr. She feels generally much better. Denies any new complaints. No rash or diarrhea. Denies abdominal pain. Objective: Ertapenem # 2 Vital Signs Temp Pulse Resp BP Pulse Ox 37.2 C 77 16 159/64 H 91 L 03/22/18 07:34 03/22/18 07:34 03/22/18 07:34 03/22/18 07:34 03/22/18 07:34 Microbiology 03/19/18 23:45 Urine Culture - Final Urine,Clean Catch Escherichia Coli Three [place] Types Laboratory Results 03/22/18 05:38 03/22/18 05:38 03/21/18 03/22/18 03/23/18 05:59 05:59 05:59 Intake Total 1400 600 Output Total 1400 1000 Balance 0 -400 - Physical Exam General Appearance: WD/WN, alert, obese, non-toxic Respiratory: lungs clear, normal breath sounds, No respiratory distress Cardiac/Chest: regular rate, rhythm, No tachycardia Abdomen: non-tender, soft, No mass Skin: normal color, warm/dry, No rash Neuro/Psych: alert, normal mood/affect, oriented x 3 ICD10 Worksheet Patient Problems: Problems Problem Status Onset Cholangiocarcinoma Acute Fever Acute Sepsis Acute C. difficile diarrhea Acute 08/01/14
--- NOTE | 2018-03-22 12:33 | HOSPPROG ---
Hospitalist Progress Note Assessment/Plan: # enterobacter cloacae bacteremia - cont invanz - ai-hepatic fluid collection not amenable to drainage - will monitor size with treatment # cholangiocarcinoma followed by dr tapia - s/p previous XRT, ablations # morbid obesity - BMI 45 # VINCENT on cpap # DM2 - lantus, SSI # chronic diastolic CHF - reports recent echo ok - cont torsemide # htn - losartan, norvasc, coreg # LBBB - plans for outpatient nuc stress - will defer for now in setting of bacteremia # dvt ppx - lovenox Subjective: no fevers; feels better today Objective: Vital Signs Temp Pulse Resp BP Pulse Ox 36.9 C 68 16 161/70 H 93 03/22/18 11:44 03/22/18 11:44 03/22/18 11:44 03/22/18 11:44 03/22/18 11:44 Microbiology 03/19/18 23:45 Urine Culture - Final Urine,Clean Catch Escherichia Coli Three [place] Types Laboratory Results 03/22/18 05:38 03/22/18 05:38 03/21/18 03/22/18 03/23/18 05:59 05:59 05:59 Intake Total 1400 600 Output Total 1400 1000 Balance 0 -400 PT 14.8 SEC (12.0-15.0) 03/19/18 18:50 INR 1.14 (0.83-1.16) 03/19/18 18:50 US report reviewed discussed with dr jade - Physical Exam Constitutional: no apparent distress, appears nourished, obese Cardiovascular: regular rate and rhythym, no murmur, rub, or gallop Respiratory: no respiratory distress, no rales or rhonchi, reduced air movement Gastrointestinal: normoactive bowel sounds, soft, non-tender abdomen, no palpable masses ICD10 Worksheet Patient Problems: Problems Problem Status Onset Cholangiocarcinoma Acute C. difficile diarrhea Acute 08/01/14 Fever Acute Sepsis Acute
[2018-03-22] MEDS: ONDANSETRON DISINTEGRATING 4 MG TAB PO PRN (16:41)
[2018-03-22] MEDS: PRESERVISION AREDS2 FORMULA EYE VIT 1 EACH PO SCH (21:09)
[2018-03-22] MEDS: [UNRECOGNIZED DRUG - OTHER] PO SCH (21:10)
[2018-03-22] MEDS: Insulin Glargine,Hum.Rec.Anlog [Toujeo Solostar] SQ SCH (21:11)
[2018-03-22] MEDS: DOCUSATE SODIUM 100 MG CAP PO SCH (21:11)
[2018-03-22] MEDS: PANTOPRAZOLE SODIUM 40 MG TAB PO SCH (21:12)
[2018-03-22] MEDS: ALBUTEROL 60 PUFFS/8 GM MDI IH PRN (22:00)
[2018-03-23] MEDS: LEVOTHYROXINE 75 MCG TAB PO SCH (04:47)
[2018-03-23] MEDS: HYDROCODONE/APAP 5/325 TAB PO PRN (04:47)
[2018-03-23] MEDS: ERTAPENEM 1 GM in NS 100 ML IV SCH (09:07)
[2018-03-23] MEDS: amLODIPine BESYLATE 5 MG TAB PO SCH (09:07)
[2018-03-23] MEDS: CARVEDILOL 6.25 MG TAB PO SCH (09:15)
[2018-03-23] MEDS: CHOLECALCIFEROL VIT D3 2,000 UNITS TAB/CAP PO SCH (09:16)
[2018-03-23] MEDS: CYANO/VITAMIN B12 1000 MCG TAB PO SCH (09:17)
[2018-03-23] MEDS: TORSEMIDE 20 MG TAB PO SCH (09:22)
[2018-03-23] MEDS: LOSARTAN POTASSIUM 50 MG TAB PO SCH (09:25)
[2018-03-23] MEDS: SENNOSIDES/DOCUSATE SODIUM TAB PO SCH (09:25)
[2018-03-23] MEDS: ASCORBIC ACID 500 MG TAB PO SCH (09:25)
[2018-03-23] MEDS: ENOXAPARIN 40 MG/0.4 ML SYR SC SCH (09:26)
[2018-03-23] MEDS: INSULIN LISPRO 100 UNIT/ML SC SCH ×2 (09:28→12:44)
[2018-03-23 11:22] VITALS: BP 150/64
--- NOTE | 2018-03-23 14:17 | ASMTLACE ---
LACE Length of stay for Answers: 3 days current admission Acuity / Level of Answers: Yes Care: Did the patient have an inpatient admission? Comorbidities - select Answers: Any tumor (including all that apply lymphoma or leukemia) Congestive heart failure Diabetes (uncontrolled or controlled) Opioid dependence / Chronic pain Other Notes: HTN; Hypothyroid # of Emergency department Answers: 1-2 visits in the last 6 months Score: 17 Date Signed: 03/23/2018 02:17 PM Electronically Signed By:JODI Rousseau
--- NOTE | 2018-03-23 14:21 | ASDISCHSUM ---
Discharge Information Plan Status:Home with No Needs Medically Cleared to Leave: Discharge Date:03/23/2018 02:11 PM CM D/C Disposition:Home, Routine, Self-Care ADT D/C Disposition:Home, Routine, Self-Care Projected Discharge Date:03/23/2018 11:00 AM Transportation at D/C:Family Discharge Delay Reason: Follow-Up Date:03/23/2018 11:00 AM Discharge Slot: Final Diagnosis: Placement Information Referral Type:Home Infusion Referral ID:[id number] Provider Name: Address 1: Phone Number: Address 2: Fax Number: City: Selection Factors: State: Patient Contact Information Contact Name:JERMAINE Relationship:Son Address: City:[facility] Phone: [facility] Code:[place] Email: Financial Information Financial Class:Medicare Primary Plan Desc:MEDICARE INPATIENT Primary Plan Number:[id number] Secondary Plan Desc: OUT OF STATE [facility] Secondary Plan Number:[id number] Assessment Information LACE LACE Length of stay for Answers: 3 days current admission Acuity / Level of Answers: Yes Care: Did the patient have an inpatient admission? Comorbidities - select Answers: Any tumor (including all that apply lymphoma or leukemia) Congestive heart failure Diabetes (uncontrolled or controlled) Opioid dependence / Chronic pain Other Notes: HTN; Hypothyroid # of Emergency department Answers: 1-2 visits in the last 6 months Score: 17 Date Signed: 03/23/2018 02:17 PM Electronically Signed By:JODI Rousseau [facility] CM Progress Note CM Note CM Note Notes: Pt is a 72 yo F, presents with Fever, has history of cholangiocarcinoma, hx of VINCENT, diastolic heart failure, and IDDM Pt resides at [facility] in [place]. Therapies ordered, pending eval. CM to follow. Plan: TBD Date Signed: 03/20/2018 05:06 PM Electronically Signed By:JODI Rousseau [facility] CM Progress Note CM Note CM Note Notes: Treatment continuing. PT/OT have not been ordered for pt. No CM needs identified at this time; CM will follow for changes. D/C Plan: Anticipate return to [facility] in [place] Date Signed: 03/21/2018 03:24 PM Electronically Signed By:Jodi Amaya [facility] CM Progress Note CM Note CM Note Notes: Per hospitalist, pt may be d/carlin with IV antibiotics. Referral sent to [facility]. D/C Plan: Possibly with [facility] for IV antibiotics. Date Signed: 03/22/2018 10:43 AM Electronically Signed By:Jodi Amaya Case Management Discharge Plan Note Case Management Discharge Discharge Order Complete? Answers: Yes Patient to Obtain Answers: via Family Medications Transportation Arranged Answers: Family/Friends Family Notified Answers: Yes Discharge Comments Notes: Discussed discharge plan with pt, pt being discharged on PO antibiotics, family to transport. Pt reports that this hospital stay should be billed under workers comp but she didn't have that card at registration. CM provided pt with financial counseling information and informed her of the patient portal information located in her discharge ppwk. Pt is returning to the [facility], no other concerns reported. Date Signed: 03/23/2018 02:20 PM Electronically Signed By:JODI Rousseau Intervention Information
--- NOTE | 2018-03-23 16:04 | GDS ---
[f rep st] DISCHARGE SUMMARY ALL DIAGNOSES: 1. Enterobacter cloacae bacteremia. 2. Perihepatic fluid collection, not amenable to percutaneous drainage. 3. Cholangiocarcinoma, followed by Dr. Nugent in [place]. 4. Morbid obesity with a body mass index of 45. 5. Obstructive sleep apnea, on continuous positive airway pressure. 6. Diabetes mellitus type 2, on insulin. 7. Chronic diastolic congestive heart failure. 8. Hypertension. 9. Left bundle branch block. HOSPITAL COURSE: This is a 72-year-old female who was admitted with fever. She had notably been adm itted previously at [facility] with a fever of unknown origin. She had been treated with IV Zosyn. On adm ission, she was found to have a perihepatic fluid collection. Blood cultures grew out Enterobacter c loacae from her blood. She was initially treated with intravenous antibiotics with Invanz. She has had significant improvement. Her perihepatic fluid collection was attempted to be sampled, though gi juan j her anatomy, it was not very amenable to percutaneous sampling. It also appeared simple on ultra sound. Because of this, no fluid was taken. On discharge, she will be switched to oral levofloxacin . This decision has been carefully considered given her underlying cardiac disease with a left bundl e branch block. However, this makes her QT interval difficult to truly measure. It is slightly prol onged, but this is likely an overestimate. Considering the risks/benefits of this versus other intra venous antibiotics, both Dr. Beatty and I feel that it is safer to treat her with an oral antibiotic than an intravenous one for a prolonged period. Because of this, we have chosen levofloxacin. I hav e discussed other side effects of this medication with her. She will follow up with Dr. Shah in 1- 2 weeks. At that time, he will likely want to follow her perihepatic fluid collection with a CT scan or ultrasound. The exact duration of antibiotics will depend on the fluid collection's response and his clinical impression when he sees her. I have given her his information to make an appointment i n 1-2 weeks. She will continue following with Dr. Nugent at [facility] for her cholangiocarcinoma. For her left bundle branch block and dyspnea on exertion, she has planned an outpatient stress test. She may follow up with Dr. Schwartz for this. BILLING: I spent more than 30 minutes on the day of discharge coordinating care. /[id number]/MODL
--- NOTE | 2018-03-26 13:27 | PQFORM ---
PHYSICIAN QUERY FORM Needs Your Response This query form is being sent to you to assure this patient record is coded properly. Please respond to the question below: MAPPING TECHNICIAN QUESTION: Dear Dr. Mills, In her history and physical, Dr. Chacon documents acute on chronic hypoxic respiratory failure. She notes the patient has a baseline of only requiring oxygen (2L) at night but upon admission had an O2 sat of 85% on RA. Based on her clinical findings throughout her admission and your professional judgment, can any of the following be added to the discharge summary?: Acute on Chronic hypoxic respiratory failure Acute hypoxic respiratory failure Chronic respiratory failure ___x__ hypoxemia Other Thank you for clarifying, ARNOLD Wisdom HIM Coding INSTRUCTIONS FOR RESPONSE: Answer question by clicking on the "Edit Document" button. Move cursor to area below the stars. When complete, hit "Save." Click on the "Sign" button, then click "Sign" again. Type in your PIN and hit "Enter." MTDD
== END 2018-03-23 14:11 | disposition home or self-care (01) | DRG 948 ==
LOC: EDUNIT# → F1N 21:35
PROVIDERS: ADMIT Internal Medicine; ATTEND Student in an Organized Health Care Education/Training Program
DX: R18.8 Other ascites (principal); R78.81 Bacteremia; B96.89 Other specified bacterial agents as the cause of diseases classified elsewhere; I13.0 Hypertensive heart and chronic kidney disease with heart failure and stage 1 through stage 4 chronic kidney disease, or unspecified chronic kidney disease; I50.32 Chronic diastolic (congestive) heart failure; R09.02 Hypoxemia; N18.9 Chronic kidney disease, unspecified; E66.01 Morbid (severe) obesity due to excess calories; Z68.42 Body mass index [BMI] 45.0-49.9, adult; C22.1 Intrahepatic bile duct carcinoma; E11.9 Type 2 diabetes mellitus without complications; G47.33 Obstructive sleep apnea (adult) (pediatric); K21.9 Gastro-esophageal reflux disease without esophagitis; E78.5 Hyperlipidemia, unspecified; E03.9 Hypothyroidism, unspecified; I44.7 Left bundle-branch block, unspecified; E21.3 Hyperparathyroidism, unspecified; Z79.4 Long term (current) use of insulin
CPT/HCPCS: J0696; J1335; J1650; J1815; J2310; J3010; Q9967

== ENCOUNTER → 2018-03-19 | Outpatient (CLI) | payer OTHER, BC | LOC: FIMAGING 13:44 | PROVIDERS: ATTEND Family Medicine | DX: J40 Bronchitis, not specified as acute or chronic (principal); C22.1 Intrahepatic bile duct carcinoma ==

== ENCOUNTER → 2018-04-17 | Outpatient (CLI) | payer OTHER, BC | LOC: BHFA 10:30 | PROVIDERS: ATTEND Internal Medicine Cardiovascular Disease | DX: R06.02 Shortness of breath (principal) ==

== ENCOUNTER → 2018-04-24 | Outpatient (CLI) | payer OTHER, BC | LOC: BHFA 08:30 | PROVIDERS: ATTEND Internal Medicine Cardiovascular Disease | DX: R06.02 Shortness of breath (principal); I44.7 Left bundle-branch block, unspecified | CPT/HCPCS: 78452; 93017; A9500; J2785 ==

== ENCOUNTER 2018-08-12 13:44 | Inpatient (IN) | payer OTHER, BC | END 2018-08-15 18:50 | disposition home or self-care (01) | LOC: F1N 16:33 ==